=== PATIENT | female | born 1955 | race African-American/Black ===

== ENCOUNTER 2024-06-12 14:59 | Emergency (ER) | payer OTHER ==
[~2024-06-12] VITALS: Ht 167.6 cm; Wt 77.0 kg
[2024-06-12 15:01] VITALS: O2SAT 98
[2024-06-12] MEDS: BLOOD SUGAR DIAGNOSTIC STRIP TEST ONE (15:36)
[2024-06-12] MEDS: SODIUM CHLORIDE 0.9% 1,000 ML IV ONE (15:36)
[2024-06-12 15:44] LABS: HEMATOCRIT. 38.7 % (36.0-48.0); HEMOGLOBIN. 12.7 g/dL (12.0-16.0); MEAN CORPUSCULAR HEMOGLOBIN 31.5 pg (28.0-32.0); MEAN CORPUSCULAR HGB CONC 32.8 g/dL (31.0-37.0); MEAN CORPUSCULAR VOLUME 96.2 fL (81.0-99.0); MEAN PLATELET VOLUME 9.5 fl (7.4-10.4); PLATELET 348 x1000/uL (130-400); RED BLOOD CELL COUNT 4.02 mill/uL (4.2-5.4); RED CELL DISTRIBUTION WIDTH 15.4 % (11.6-14.6); WHITE BLOOD COUNT 15.6 x1000/uL (4.5-11.0)
[2024-06-12 15:45] LABS: DIFFERENTIAL COMMENT 1
[2024-06-12 15:51] LABS: CHLORIDE 104 mEq/L (98-107); POTASSIUM 5.2 mEq/L (3.5-5.1); SODIUM 132 mEq/L (136-145)
[2024-06-12 15:52] LABS: CALCIUM 10.3 mg/dL (8.7-10.4); CARBON DIOXIDE 18 mEq/L (21-32)
[2024-06-12 15:57] LABS: CREATININE 1.2 mg/dL (0.6-1.0); GLUCOSE 325 mg/dL (70-105); UREA NITROGEN BLOOD 20 mg/dL (9-23)
[2024-06-12 16:00] LABS: TROPONIN I HIGH SENSITIVITY 26 ng/L (3.0-34)
[2024-06-12 16:15] VITALS: BP 125/77; PULSE 110; RESP 16; TEMP 97.4
[2024-06-12 18:56] LABS: PLATELET ESTIMATE NORMAL
== END 2024-06-12 16:30 | disposition left against medical advice (07) ==
LOC: ER 14:59
DX: E11.65 Type 2 diabetes mellitus with hyperglycemia (principal); I10 Essential (primary) hypertension; Z88.8 Allergy status to other drugs, medicaments and biological substances
CPT/HCPCS: 99285; 96360; 71045; 80048; 82962; 83880; 85025; 84484; 36415; 93005; J7030